=== PATIENT | female | born 1935 | race Caucasian/White ===

== ENCOUNTER 2018-06-26 11:30 | Emergency (ER) | payer MEDICARE, OTHER ==
[~2018-06-26] VITALS: Ht 160 cm; Wt 57.6 kg
[2018-06-26 11:43] VITALS: BP 128/84
[2018-06-26] MEDS ORDERED: DIAZ5TAB PO (12:20)
[2018-06-26] MEDS ORDERED: BACITRACIN ZINC OINT 500U/GM, 0.9 GM ONE (14:01)
== END 2018-06-26 14:18 | disposition home or self-care (01) ==
LOC: ED 12:57
DX: S42.032A Displaced fracture of lateral end of left clavicle, initial encounter for closed fracture (principal); G31.89 Other specified degenerative diseases of nervous system; W10.9XXA Fall (on) (from) unspecified stairs and steps, initial encounter; Y93.89 Activity, other specified; Y92.89 Other specified places as the place of occurrence of the external cause; Y99.8 Other external cause status
CPT/HCPCS: 70450; 71046; 72125; 99284